=== PATIENT | female | born 1945 | race Caucasian/White ===

== ENCOUNTER 2016-08-28 12:24 | Emergency (ER) | payer MEDICARE, MEDICAID ==
[2016-08-28 12:49] VITALS: BMI 24.0
[2016-08-28] MEDS ORDERED: Belladonna-Phenobarbital PO STA (13:01)
[2016-08-28] MEDS ORDERED: Sodium Chloride 0.9% 1,000 ML IV ONE ×2 (13:01→15:27)
[2016-08-28] MEDS ORDERED: Aluminum Hydroxide/Magnesium Hydroxide Susp (30 mL) PO STA (13:01)
[2016-08-28] MEDS ORDERED: Sodium Chloride 0.9% 1,000 ML ONE (13:20)
--- NOTE | 2016-08-28 13:36 | C.PDOC ---
History Of Present Illness 71 y/o female presents to ED with complaint of abdominal pain, nausea, and vomiting since yesterday. Patient states her pain feels like gastritis; now c/o cramping, colicy, intestinal pain with profuse vomiting and diarrhea. Reports pain currently 4/10, dull, throughout entire abdomen, does not radiate. Denies fever, chills, headache, chest pain, SOB, or dysuria. Time Seen by Provider: 08/28/16 12:55 Chief Complaint (Nursing): Abdominal Pain History Per: Patient History/Exam Limitations: no limitations Current Symptoms Are (Timing): Still Present Pain Scale Rating Of: 4 Location Of Pain/Discomfort: Diffuse, Epigastric Radiation Of Pain To:: None Quality Of Discomfort: Dull, Cramping, "Pain" Associated Symptoms: Nausea, Vomiting, Diarrhea. denies: Fever, Chills, Urinary Symptoms Recent travel outside of the [place]: No Past Medical History Reviewed: Historical Data, Nursing Documentation, Vital Signs Vital Signs: Last Vital Signs Temp 98.0 F 08/28/16 12:31 Pulse 74 08/28/16 12:31 Resp 20 08/28/16 12:31 BP 146/71 08/28/16 12:31 Pulse Ox 98 08/28/16 15:27 - Medical History PMH: Gastritis Surgical History: Appendectomy Family History: States: Unknown Family Hx - Social History Hx Tobacco Use: No Hx Alcohol Use: No Hx Substance Use: No - Immunization History Hx Tetanus Toxoid Vaccination: No Hx Influenza Vaccination: No Hx Pneumococcal Vaccination: No Review Of Systems Except As Marked, All Systems Reviewed And Found Negative. Constitutional: Negative for: Fever, Chills Cardiovascular: Negative for: Chest Pain Respiratory: Negative for: Cough, Wheezing Gastrointestinal: Positive for: Nausea, Vomiting, Abdominal Pain, Diarrhea Genitourinary: Negative for: Dysuria Skin: Negative for: Rash Neurological: Negative for: Headache Physical Exam - Physical Exam Appears: Non-toxic, Other (in discomfort, moaning, holding belly) Skin: Warm, Dry, No Rash Head: Atraumatic, Normacephalic Oral Mucosa: Moist Chest: Symmetrical Cardiovascular: Rhythm Regular Respiratory: Normal Breath Sounds, No Rales, No Rhonchi, No Wheezing Gastrointestinal/Abdominal: Soft, Tenderness (soft mild tenderness, epigastrium) , No Distention, No Guarding, No Rebound Back: No CVA Tenderness Extremity: Normal ROM, Capillary Refill (< 2 sec. ) Neurological/Psych: Oriented x3, Normal Speech, Normal Cognition ED Course And Treatment - Laboratory Results Result Diagrams: 08/28/16 13:34 08/28/16 13:34 O2 Sat by Pulse Oximetry: 98 (RA) Pulse Ox Interpretation: Normal Medical Decision Making Medical Decision Making: Differential Diagnosis: GERD, gastroenteritis, diverticulitis Plan: * Maalox, , Pepcid, Zofran, IVFs * Labs * CT abdomen * Reassess Progress: patient feeling better after hydration. Will give more IV fluids and dispo. Disposition Counseled Patient/Family Regarding: Studies Performed, Diagnosis, Need For Followup, Rx Given - Disposition Disposition: HOME/ ROUTINE Disposition Time: 15:45 Condition: STABLE Prescriptions: Dicyclomine [Bentyl] 20 mg PO BID #20 tab Ondansetron ODT [Zofran ODT] 1 odt PO BID PRN #6 odt PRN Reason: Nausea/Vomiting Instructions: Gastroenteritis (ED) Forms: Gen Discharge Inst Upper Sorbian - POA Present On Arrival: None - Clinical Impression Clinical Impression: Gastroenteritis - Scribe Statement The provider has reviewed the documentation as recorded by the Valeriano Gao Provider Scribe Attestation: All medical record entries made by the Rinaibxavier were at my direction and personally dictated by me. I have reviewed the chart and agree that the record accurately reflects my personal performance of the history, physical exam, medical decision making, and the department course for this patient. I have also personally directed, reviewed, and agree with the discharge instructions and disposition.
[2016-08-28 13:38] LABS: BASO # 0.1 K/uL (0.0-0.2); BASO % 0.6 % (0.0-2.0); EOS # 0.1 K/uL (0.0-0.7); EOS % 0.6 % (0.0-4.0); LYMPH # 1.9 K/uL (1.0-4.3); LYMPH % 20.4 % (20.0-40.0); MEAN CELL VOLUME 84.6 fL (81.0-99.0); MEAN CORPUSCULAR HEMOGLOBIN 27.3 pg (27.0-31.0); MEAN CORPUSCULAR HGB CONC 32.3 g/dL (33.0-37.0); MEAN PLATELET VOLUME 8.5 fL (7.2-11.7); MONO # 0.8 K/uL (0.0-0.8); RED CELL DISTRIBUTION WIDTH 13.3 % (11.5-14.5); WHITE BLOOD COUNT 9.3 K/uL (4.8-10.8)
[2016-08-28 13:47] LABS: CHLORIDE 97 mmol/L (98-107); POTASSIUM 4.1 mmol/L (3.6-5.2); SODIUM 138 mmol/L (132-148)
[2016-08-28 13:49] LABS: ALB/GLOB RATIO 1.3 (1.0-2.1); AST/SGOT 29 U/L (14-36); BILIRUBIN,TOTAL 0.7 mg/dL (0.2-1.3); CARBON DIOXIDE 25 mmol/L (22-30); GFR AFRICAN-AMERICAN > 60; TOTAL PROTEIN 7.7 g/dL (6.3-8.3)
[2016-08-28 13:50] LABS: ALKALINE PHOSPHATASE 130 U/L (38-126); ALT/SGPT 19 U/L (9-52); BLOOD UREA NITROGEN 15 mg/dL (7-17); CALCIUM 9.4 mg/dl (8.6-10.4); GLUCOSE,RANDOM 173 mg/dL (65-105)
[2016-08-28] MEDS ORDERED: Belladonna-Phenobarbital ONE (14:01)
[2016-08-28] MEDS ORDERED: Aluminum Hydroxide/Magnesium Hydroxide Susp (30 mL) ONE (14:01)
--- NOTE | 2016-08-28 14:15 | CT ---
PROCEDURE: CT Abdomen and Pelvis without intravenous contrast HISTORY: abd pain COMPARISON: 04/10/2014 TECHNIQUE: Without contrast.. Contrast Dose: 0 Radiation dose: Total exam DLP = 294.45 mGy-cm. This CT exam was performed using one or more of the following dose reduction techniques: Automated exposure control, adjustment of the mA and/or kV according to patient size, and/or use of iterative reconstruction technique. FINDINGS: LOWER THORAX: No infiltrate or effusion. Calcified granuloma in right lower lobe. LIVER: Unremarkable. No gross lesion or ductal dilatation. GALLBLADDER AND BILE DUCTS: Unremarkable. PANCREAS: Unremarkable. No gross lesion or ductal dilatation. SPLEEN: Unremarkable. ADRENALS: Unremarkable. No mass. KIDNEYS AND URETERS: No renal mass, calculus or hydronephrosis. VASCULATURE: Unremarkable. No aortic aneurysm. BOWEL: Sigmoid diverticulosis without evidence of diverticulitis. No bowel obstruction. APPENDIX: Appendix not identified. No secondary findings to suggest acute appendicitis. PERITONEUM: No ascites. No free air. Tiny umbilical hernia containing only mesenteric fat. LYMPH NODES: Unremarkable. No enlarged lymph nodes. BLADDER: Unremarkable. REPRODUCTIVE: Normal postmenopausal uterus. BONES: No acute fracture. OTHER FINDINGS: None. IMPRESSION: No acute abnormality. Diverticulosis of the sigmoid colon without evidence of diverticulitis. Additional minor findings as above.
[2016-08-28 14:36] LABS: URINE BACTERIA RARE (<OCC); URINE BILIRUBIN NEGATIVE (NEGATIVE); URINE BLOOD NEGATIVE (NEGATIVE); URINE COLOR Colorless (YELLOW); URINE GLUCOSE (UA) NORMAL (Normal); URINE KETONE NEGATIVE (NEGATIVE); URINE LEUKOCYTE ESTERASE NEG Leu/uL (Negative); URINE PROTEIN NEGATIVE (NEGATIVE); URINE UROBILINOGEN NORMAL mg/dL (0.2-1.0); WBC URINE < 1 /hpf (0-5)
[2016-08-28 16:05] VITALS: BP 120/73; PULSE 71; RESP 16; TEMP 98.3; O2SAT 100
== END 2016-08-28 16:04 | disposition home or self-care (01) ==
LOC: C.ER 12:24
DX: K52.9 Noninfective gastroenteritis and colitis, unspecified (principal)
CPT/HCPCS: 74176; 80053; 81001; 83690; 85025; 96361; 96374; 96375; 99285; J2405; J7040

== ENCOUNTER 2018-08-12 00:51 | Emergency (ER) | payer MEDICARE, MEDICAID ==
[2018-08-12 00:51] VITALS: BMI 24.0
[2018-08-12] MEDS ORDERED: Sodium Chloride 0.9% 500 ML IV ONE (02:05)
[2018-08-12] MEDS ORDERED: Tramadol 25 mg PO STA (02:08)
[2018-08-12 02:30] LABS: SQUAMOUS EPITHIAL < 1 /hpf (0-5); URINE BACTERIA OCC (<OCC); URINE BILIRUBIN NEGATIVE (NEGATIVE); URINE BLOOD 1+ (NEGATIVE); URINE CLARITY Hazy (Clear); URINE COLOR Yellow (YELLOW); URINE GLUCOSE (UA) NORMAL (Normal); URINE LEUKOCYTE ESTERASE 3+ Leu/uL (Negative); URINE PROTEIN 1+ mg/dL (NEGATIVE); URINE UROBILINOGEN NORMAL mg/dL (0.2-1.0)
[2018-08-12 03:04] LABS: BASO % 0.1 % (0.0-2.0); EOS % 0.2 % (0.0-4.0); LYMPH # 0.9 K/uL (1.0-4.3); LYMPH % 6.8 % (20.0-40.0); MEAN CELL VOLUME 87.8 fL (81.0-99.0); MEAN CORPUSCULAR HEMOGLOBIN 29.3 pg (27.0-31.0); MEAN CORPUSCULAR HGB CONC 33.3 g/dL (33.0-37.0); MEAN PLATELET VOLUME 8.1 fL (7.2-11.7); MONO # 1.7 K/uL (0.0-0.8); MONO % 13.1 % (0.0-10.0); NEUT # 10.3 K/uL (1.8-7.0); NEUT % 79.8 % (50.0-75.0); PLATELET COUNT 347 K/uL (130-400); RBC 4.11 Mil/uL (3.80-5.20); RED CELL DISTRIBUTION WIDTH 12.7 % (11.5-14.5); WHITE BLOOD COUNT 12.9 K/uL (4.8-10.8)
[2018-08-12 03:11] LABS: ALB/GLOB RATIO 1.4 (1.0-2.1); ALBUMIN 4.1 g/dL (3.5-5.0); ALT/SGPT 7 U/L (9-52); AST/SGOT 23 U/L (14-36); BLOOD UREA NITROGEN 14 mg/dL (7-17); CALCIUM 9.5 mg/dl (8.6-10.4); GFR NON-AFRICAN AMERICAN > 60; LIPASE 86 U/L (23-300)
[2018-08-12 03:52] LABS: BANDS 6 % (0-2); LYMPHOCYTE 6 % (20-40); MONOCYTE 15 % (0-10); NEUTROPHIL 73 % (50-75); PLATELET ESTIMATE NORMAL (NORMAL); TOTAL CELLS COUNTED 100
[2018-08-12 04:19] VITALS: BP 133/63; PULSE 80; RESP 16; TEMP 98
[2018-08-12 04:20] VITALS: O2SAT 98
--- NOTE | 2018-08-12 04:20 | C.PDOC ---
History Of Present Illness 73 year old female presents with dysuria, chills, sore throat, and body aches for the past 3 days. Denies fever, vomiting, diarrhea, abdominal pain, or hematuria. Time Seen by Provider: 08/12/18 01:53 Chief Complaint (Nursing): Female Genitourinary History Per: Patient History/Exam Limitations: no limitations Onset/Duration Of Symptoms: Days (3) Current Symptoms Are (Timing): Still Present Associated Symptoms: Chills, Other (dysuria, sore throat, body aches) Recent travel outside of the [place]: No Past Medical History Reviewed: Historical Data, Nursing Documentation, Vital Signs Vital Signs: Last Vital Signs Temp 100.2 F H 08/12/18 01:02 Pulse 104 H 08/12/18 01:02 Resp 18 08/12/18 01:02 BP 110/74 08/12/18 01:02 Pulse Ox 98 08/12/18 01:02 - Medical History PMH: Gastritis Surgical History: Appendectomy Family History: States: Unknown Family Hx - Social History Hx Tobacco Use: No Hx Alcohol Use: No Hx Substance Use: No - Immunization History Hx Tetanus Toxoid Vaccination: No Hx Influenza Vaccination: Yes Hx Pneumococcal Vaccination: Yes Review Of Systems Constitutional: Positive for: Chills. Negative for: Fever ENT: Positive for: Throat Pain Gastrointestinal: Negative for: Vomiting, Abdominal Pain, Diarrhea Genitourinary: Positive for: Dysuria. Negative for: Hematuria Musculoskeletal: Positive for: Other (Body aches) Physical Exam - Physical Exam Appears: Non-toxic Skin: Normal Color, Warm Head: Atraumatic, Normacephalic Eye(s): bilateral: Normal Inspection Oral Mucosa: Moist Throat: Normal, No Erythema, No Exudate Neck: Normal, Supple Chest: Symmetrical, No Tenderness Cardiovascular: Rhythm Regular Respiratory: Normal Breath Sounds, No Rales, No Rhonchi, No Wheezing Gastrointestinal/Abdominal: Soft, Tenderness (Mid suprapubic), No Guarding, No Rebound Back: No CVA Tenderness Neurological/Psych: Oriented x3, Normal Speech ED Course And Treatment - Laboratory Results Result Diagrams: 08/12/18 03:02 08/12/18 03:02 Lab Results: Total Bilirubin 0.5 mg/dL (0.2-1.3) 08/12/18 03:02 AST 23 U/L (14-36) 08/12/18 03:02 ALT 7 U/L (9-52) L D 08/12/18 03:02 Alkaline Phosphatase 95 U/L (38-126) 08/12/18 03:02 Total Protein 7.1 g/dL (6.3-8.3) 08/12/18 03:02 Albumin 4.1 g/dL (3.5-5.0) 08/12/18 03:02 Globulin 3.0 gm/dL (2.2-3.9) 08/12/18 03:02 Albumin/Globulin Ratio 1.4 (1.0-2.1) 08/12/18 03:02 Lipase 86 U/L (23-300) 08/12/18 03:02 Urine Color Yellow (YELLOW) 08/12/18 02:14 Urine Clarity Hazy (Clear) 08/12/18 02:14 Urine pH 7.0 (5.0-8.0) 08/12/18 02:14 Ur Specific [place] 1.014 (1.003-1.030) 08/12/18 02:14 Urine Protein 1+ mg/dL (NEGATIVE) H 08/12/18 02:14 Urine Glucose (UA) Normal mg/dL (Normal) 08/12/18 02:14 Urine Ketones Negative mg/dL (NEGATIVE) 08/12/18 02:14 Urine Blood 1+ (NEGATIVE) H 08/12/18 02:14 Urine Nitrate Negative (NEGATIVE) 08/12/18 02:14 Urine Bilirubin Negative (NEGATIVE) 08/12/18 02:14 Urine Urobilinogen Normal mg/dL (0.2-1.0) 08/12/18 02:14 Ur Leukocyte Esterase 3+ Ju/uL (Negative) H 08/12/18 02:14 Urine WBC (Auto) 680 /hpf (0-5) H 08/12/18 02:14 Urine RBC (Auto) 20 /hpf (0-3) H 08/12/18 02:14 Ur Squamous Epith Cells < 1 /hpf (0-5) 08/12/18 02:14 Urine Bacteria Occ (<OCC) H 08/12/18 02:14 O2 Sat by Pulse Oximetry: 98 (Room air) Pulse Ox Interpretation: Normal Progress Note: Blood work and urinalysis ordered, results were positive for UTI. Cipro PO and tramadol administered. On reevaluation, patient is resting comfortably in no acute distress, vitals are stable, will discharge home with Rx and instructions to follow up with PMD. Disposition Counseled Patient/Family Regarding: Diagnosis, Need For Followup, Rx Given - Disposition Referrals: Vipin Coulter MD [Medical Doctor] - Disposition: HOME/ ROUTINE Disposition Time: 04:17 Condition: STABLE Additional Instructions: Please follwo up with PMD ( [place]ih[place] con el Dr coulter en 1-2 florez) Increase PO fluids ( Kristine liquido Kristine [facility] Regresa si fiebre alto, vomite o peor Prescriptions: Acetaminophen 650 mg PO Q4 #30 tab Ciprofloxacin [Cipro] 1 tab PO BID #14 tab Instructions: Urinary Tract Infection, Adult (DC) Forms: [employer] (Z[place]an) Print Language: KOSOVAN - Clinical Impression Clinical Impression: Urinary tract infection - PA / [employer] / Resident Statement MD/DO has reviewed & agrees with the documentation as recorded. - Scribe Statement The provider has reviewed the documentation as recorded by the Scribxavier Lacey All medical record entries made by the Rinaibxavier were at my direction and personally dictated by me. I have reviewed the chart and agree that the record accurately reflects my personal performance of the history, physical exam, medi anamaria decision making, and the department course for this patient. I have also personally directed, reviewed, and agree with the discharge instructions and disposition.
== END 2018-08-12 04:26 | disposition home or self-care (01) ==
LOC: C.ER 00:51
DX: N39.0 Urinary tract infection, site not specified (principal)
CPT/HCPCS: 80053; 81001; 83690; 85025; 87086; 87181; 99285; J7030